=== PATIENT | female | born 1960 | race Caucasian/White ===

== ENCOUNTER → 2022-09-09 | Outpatient (REF) | payer MEDICAID ==
[~2022-09-09] MED LIST: LORA1TAB23 PO; MULT1TAB10 PO; NICO1DIS12 TOP; RALO1TAB PO; RANI15TA PO; TAMO20TA8 PO; VALA1TAB5 PO; VITMTA PO; ZANTTAB9 PO
== END ==
LOC: M SFHCWAGY 15:19
PROVIDERS: ATTEND Nurse Practitioner Family
DX: Z12.4 Encounter for screening for malignant neoplasm of cervix (principal)

== ENCOUNTER → 2023-09-12 | Outpatient (REF) | payer MEDICAID ==
[2023-09-16 16:12] LABS: HPV APTIMA Not Detected (Not Detected)
== END ==
LOC: M SFHCWAGY 17:05
PROVIDERS: ATTEND Nurse Practitioner Family
DX: Z12.4 Encounter for screening for malignant neoplasm of cervix (principal)

== ENCOUNTER 2024-03-03 08:36 | Day surgery (SDC) | payer SELFPAY ==
[~2024-03-03] VITALS: Ht 152.4 cm; Wt 64.0 kg
[~2024-03-03 08:36] MED LIST changes: +ALBUTEROL SULFATE 2.5MG/0.5ML INH NEB SOLN INH ONE; +BUSP5TA PO; +CALC-190 PO; +LIDOCAINE PRES-FREE 2% 10ML AMP INH ONE; +MULT-90 PO; +PROA1AER2 IN
[2024-03-03] MEDS ORDERED: LIDOCAINE 1% SDV 5ML VIAL SC PRN (08:45)
[2024-03-03] MEDS: NS 1,000 ML IV SCH (09:15)
[2024-03-03] MEDS ORDERED: LIDOCAINE 2% 100MG/5ML SDV (FOR ANES.) As Ordered ONE (09:29)
[2024-03-03] MEDS ORDERED: propofoL 200 MG/20 ML VIAL As Ordered ONE (09:29)
[2024-03-03] MEDS ORDERED: ONDANSETRON 4MG 2ML VIAL As Ordered ONE (09:29)
[2024-03-03] MEDS ORDERED: SUGAMMADEX SODIUM 500 MG/5 ML VIAL (BRIDION) As Ordered ONE (09:29)
[2024-03-03] MEDS ORDERED: ROCURONIUM BROMIDE 50MG/5ML VIAL As Ordered ONE (09:29)
[2024-03-03] MEDS ORDERED: MIDAZOLAM INJ 2MG/2ML VIAL As Ordered ONE (10:03)
[2024-03-03] MEDS ORDERED: fentaNYL 100 MCG/2 ML INJECTION As Ordered ONE (10:03)
[2024-03-03] MEDS ORDERED: ACETAMINOPHEN 1000MG/100ML IV BAG As Ordered ONE (10:36)
[2024-03-03] MEDS: CETACAINE SPRAY 5GM As Ordered ONE (10:39)
[2024-03-03] MEDS ORDERED: PHENYLephrine 500MCG 5ML (100MCG/ML) SYRINGE As Ordered ONE (10:41)
[2024-03-03] MEDS: EPINEPHrine 1MG/10ML SYRINGE 1.5IN As Ordered ONE (11:15)
[2024-03-03] MEDS: THROMBIN 5,000 UNITS VIAL As Ordered ONE (11:15)
[2024-03-03] MEDS ORDERED: ONDANSETRON 4MG 2ML VIAL IV PRN (11:45)
[2024-03-03] MEDS ORDERED: NS 1,000 ML IV SCH (11:45)
[2024-03-03] MEDS ORDERED: oxyCODONE 5MG TAB PO PRN (11:45)
[2024-03-03] MEDS ORDERED: fentaNYL 100 MCG/2 ML INJECTION IV PRN (11:45)
[2024-03-03 12:10] VITALS: BP 120/67; TEMP 97.5; O2SAT 94
== END 2024-03-03 12:38 | disposition home or self-care (01) ==
LOC: M SDC 08:36
PROVIDERS: ATTEND Internal Medicine Pulmonary Disease
DX: J84.9 Interstitial pulmonary disease, unspecified (principal); Z87.891 Personal history of nicotine dependence; Z92.21 Personal history of antineoplastic chemotherapy; Z92.3 Personal history of irradiation; Z85.3 Personal history of malignant neoplasm of breast; F41.9 Anxiety disorder, unspecified; Z79.899 Other long term (current) drug therapy
CPT/HCPCS: 31623; 31628; 31652; 88104; 88173; 88305; J0131; J1100; J2250; J2371; J2405; J3010

== ENCOUNTER → 2024-06-07 | Outpatient (CLI) | payer MEDICARE, MEDICAID ==
[~2024-06-07] MED LIST changes: -ALBUTEROL SULFATE 2.5MG/0.5ML INH NEB SOLN INH ONE; +HOME MED LIST COMPLETE! XX SCH; +LIDOCAINE 1% MDV 20ML VIAL As Ordered ONE; -LIDOCAINE PRES-FREE 2% 10ML AMP INH ONE
[2024-06-07 11:55] VITALS: BP 173/80; TEMP 98.9; O2SAT 97
[2024-06-07 12:26] LABS: HEMATOCRIT 41.4 % (36.0-47.0); HEMOGLOBIN 13.1 g/dl (12.0-15.5); MEAN CORPUSCULAR HEMOGLOBIN 28.2 pg (27.0-33.0); MEAN CORPUSCULAR HGB CONC 31.6 g/dl (32.0-36.5); MEAN CORPUSCULAR VOLUME 89.2 fl (80.0-96.0); PLATELET COUNT, AUTOMATED 286 10^3/uL (150-450); RED BLOOD COUNT 4.64 10^6/uL (4.00-5.40); WHITE BLOOD COUNT 7.7 10^3/uL (4.0-10.0)
== END ==
LOC: M IRPRO 11:39
PROVIDERS: ATTEND Internal Medicine Hematology & Oncology
DX: C34.11 Malignant neoplasm of upper lobe, right bronchus or lung (principal); F41.9 Anxiety disorder, unspecified; K21.9 Gastro-esophageal reflux disease without esophagitis; F17.200 Nicotine dependence, unspecified, uncomplicated; D05.92 Unspecified type of carcinoma in situ of left breast; J98.11 Atelectasis